=== PATIENT | female | born 1980 | race Caucasian/White ===

== ENCOUNTER → 2023-10-20 08:13 | Outpatient (REF) | payer BC, SELFPAY | LOC: HWRAD 08:13 | PROVIDERS: ATTENDING PHYSICIAN Urology | DX: N30.10 Interstitial cystitis (chronic) without hematuria (principal); M62.89 Other specified disorders of muscle; N20.0 Calculus of kidney; N39.3 Stress incontinence (female) (male) | CPT/HCPCS: 76770 ==

== ENCOUNTER → 2024-07-07 08:15 | Outpatient (REF) | payer BC, SELFPAY | LOC: HWRAD 08:15 | PROVIDERS: ATTENDING PHYSICIAN Physician Assistant; FAMILY PHYSICIAN Physician Assistant Medical | DX: E04.2 Nontoxic multinodular goiter (principal) | CPT/HCPCS: 76536 ==

== ENCOUNTER → 2025-01-11 07:21 | Outpatient (REF) | payer BC, SELFPAY | LOC: HWWDC 07:21 | PROVIDERS: ATTENDING PHYSICIAN Obstetrics & Gynecology | DX: Z12.31 Encounter for screening mammogram for malignant neoplasm of breast (principal) | CPT/HCPCS: 77063; 77067 ==